=== PATIENT | female | born 1995 | race Caucasian/White ===

== ENCOUNTER 2017-01-12 22:19 | Emergency (ER) | payer MEDICAID, OTHER ==
[~2017-01-12] VITALS: Wt 64.5 kg
[~2017-01-12 22:19] MED LIST: FER325 PO; PREN-39 PO
[2017-01-12] MEDS ORDERED: ACETAMINOPHEN 325 MG TAB PO STA (23:59)
[2017-01-13 00:48] LABS: ADD UMIC YES; UR ASCORBIC ACID 40 mg/dL (NEGATIVE); UR BILIRUBIN (Dip) NEGATIVE (NEGATIVE); UR BLOOD (Dip) NEGATIVE (NEGATIVE); UR CLARITY SLIGHTLY CLOUDY (CLEAR); UR COLOR YELLOW (YELLOW); UR GLUCOSE (Dip) NEGATIVE (NEGATIVE); UR KETONES (Dip) TRACE mg/dL (NEGATIVE); UR LEUKOCYTE ESTERASE (Dip) 1+ Leu/ul (NEGATIVE); UR MUCUS FEW /HPF (NONE SEEN); UR NITRITE (Dip) NEGATIVE (NEGATIVE); UR RBC 1 /HPF (0-5); UR SPECIFIC GRAVITY (Dip) 1.032 (1.003-1.030); UR SQUAMOUS EPITHELIAL CELL FEW /HPF (FEW); UR TOTAL PROTEIN (Dip) NEGATIVE (NEGATIVE); UR UROBILINOGEN (Dip) NEGATIVE (NEGATIVE)
--- NOTE | 2017-01-13 01:13 | RADRPT ---
PROCEDURE: US OB. CLINICAL INDICATION: Pain. TECHNIQUE: Multiple sonographic images of the pelvis were obtained. Transabdominal imaging only w as performed. The images were reviewed on a PACS workstation. COMPARISON: None. FINDINGS: Single live intrauterine is identified. Cardiac activity is present with 146 beats per mi nute. There is a vertex presentation. Measurements: BPD = 14 weeks 4 days. HC = 14 weeks 4 days. AC = 14 weeks 6 days. FL = 14 weeks 2 days. Estimated gestational age of approximately 14 weeks 4 days. The estimated date of delivery is 07/10/2017. The EFW = 101 g which is at the 36 percentile The placenta is anterior. Amniotic fluid MVP = 3.8 cm. There are large simple right ovarian cyst 7.1 x 5.6 x 6.9 cm is present. Flow is identified to the right ovary. IMPRESSION: Single live intrauterine gestation of approximately 14 weeks 4 days. Large simple right ovarian cys t. RPTAT: HMVK .Wallace Chaves MD, Date Time Electronically viewed and signed by .Wallace Chaves MD, on 01/13/2017 01:13 .K/
--- NOTE | 2017-01-13 01:25 | ERD ---
ER Documentation Chief Complaint Date/Time DATE: 01/13/17 TIME: 01:13 Chief Complaint AP since at 1345. 14 weeks HPI This 21-year-old female presents to emergency department for abdominal pain started upper quadrants and has moved to generalized pain. Patient is 3 months , 2 para 100. Patient denies any vaginal discharge or bleeding , denies dysuria, reports pain now seems to be in the right lower pelvic area. Patient denies nausea, vomiting, fever, or chills. ROS All systems reviewed and are negative except as per history of present illness. Medications Home Meds Active Scripts Acetaminophen* (Tylenol*) 325 Mg Tablet, 2 TAB PO Q6 Y for PAIN AND OR ELEVATED TEMP, #20 TAB Prov:KANDI,NAHID 01/13/17 Reported Medications Ferrous Sulfate* (Ferrous Sulfate*) 325 Mg Tabec, 325 MG PO DAILY, TAB 03/15/14 Vits W-Ca,Fe,Fa(<1MG) ( Vitamins) 1 Tab Tablet, 1 TAB PO DAILY 03/15/14 Allergies Allergies: Coded Allergies: No Known Allergy (Unverified , 03/15/14) PMhx/Soc Medical and Surgical Hx: pt denies Medical Hx, pt denies Surgical Hx Hx Alcohol Use: No Hx Substance Use: No Hx Tobacco Use: No Smoking Status: Never smoker Physical Exam Vitals Vital Signs Date Time Temp Pulse Resp B/P Pulse Ox O2 Delivery O2 Flow Rate FiO2 01/13/17 01:45 98.6 78 20 118/75 98 Room Air 01/12/17 22:47 98.3 78 20 105/61 98 Vitals stable, triage notes reviewed Physical Exam Const: Well-nourished, well-appearing, well-hydrated, no acute distress Head: Atraumatic Eyes: Normal Conjunctiva, PERRLA, EOMI ENT: Normal External Ears, Nose and Mouth. Mucous membranes moist Neck: Full range of motion..~ No meningismus. Resp: Respirations even and unlabored no respiratory distress Cardio: Regular rate and rhythm, no murmurs Abd: 's abdomen Skin: Back: Ext: No cyanosis, or edema Neur: Awake and alert Psych: Normal Mood and Affect Results 24 hrs Laboratory Tests Test 01/13/17 00:10 Urine Color YELLOW Urine Clarity SLIGHTLY CLOUDY Urine pH 6.0 Urine Specific [place] 1.032 Urine Ketones TRACEmg/dL Urine Nitrite NEGATIVEmg/dL Urine Bilirubin NEGATIVEmg/dL Urine Urobilinogen NEGATIVEmg/dL Urine Leukocyte Esterase 1+Luis F/ul Urine Microscopic RBC 1/HPF Urine Microscopic WBC 5/HPF Urine Squamous Epithelial Cells FEW/HPF Urine Mucus FEW/HPF Urine Hemoglobin NEGATIVEmg/dL Urine Glucose NEGATIVEmg/dL Urine Total Protein NEGATIVEmg/dl Beta HCG, Quantitative 42508.0mIU/ml Current Medications Medications (Trade) Dose Ordered Sig/Tre Route PRN Reason Start Time Stop Time Status Last Admin Dose Admin Acetaminophen (Tylenol Tab) 650 mg ONCE STAT PO 01/12/17 23:59 01/13/17 00:05 DC 01/13/17 00:16 Beta hCG consistent with Procedures/MDM PROCEDURE: US OB. CLINICAL INDICATION: Pain. TECHNIQUE: Multiple sonographic images of the pelvis were obtained. Transabdominal imaging only was performed. The images were reviewed on a PACS workstation. COMPARISON: None. FINDINGS: Single live intrauterine is identified. Cardiac activity is present with 146 beats per minute. There is a vertex presentation. Measurements: BPD = 14 weeks 4 days. HC = 14 weeks 4 days. AC = 14 weeks 6 days. FL = 14 weeks 2 days. Estimated gestational age of approximately 14 weeks 4 days. The estimated date of delivery is 07/10/2017. The EFW = 101 g which is at the 36 percentile The placenta is anterior. Amniotic fluid MVP = 3.8 cm. There are large simple right ovarian cyst 7.1 x 5.6 x 6.9 cm is present. Flow is identified to the right ovary. IMPRESSION: Single live intrauterine gestation of approximately 14 weeks 4 days. Large simple right ovarian cyst. Electronically viewed and signed by .Wallace Chaves MD, MD on 01/13/2017 01:13 This 21-year-old female presents to emergency department for pelvic pain,14 weeks . threatened miscarriage, placenta previa, considered, beta hCG 33387, OB ultrasound; Single live intrauterine gestation of approximately 14 weeks 4 days. Large simple right ovarian cyst. Urinalysis +1 leukocytes patient will be treated for urinary tract infection with Keflex 1 tab p.o. 4 times daily 7 days. Instructed to follow-up with primary cinder block maker for further complaint of abdominal pain. Return to emergency department for vaginal bleeding. Increase fluids, increase rest, Tylenol as needed pain. I feel the patient is stable for discharge at this time with outpatient management by cinder block maker as discussed above. I have discussed results, examination findings, the treatment plan with the patient and family present prior to discharge. Indications for emergent reevaluation, side effects of medication were also discussed. All questions were answered. Patient verbalizes understanding and agrees with plan of care. Departure Diagnosis: Primary Impression: Abdominal pain in Trimester: second trimester Qualified Code: O26.892 - Abdominal pain in , second trimester Additional Impression: Ovarian cyst during Trimester: second trimester Qualified Code: O34.82 - Ovarian cyst during , second trimester Condition: Good Patient Instructions: Abdominal Pain, Early , Ovarian Cyst Additional Instructions: Thank you for for coming to [facility] for your care today. Please ask your nurse or provider if you have questions about your care today and do not leave until all your questions have been answered. Please use any medications given as directed and follow-up with your doctor (or the doctor you were referred to) in the next 2-3 days. If you do not have a primary care doctor you may follow up at the [facility] [place] (listed below). You may also use motrin and tylenol as needed for fever and/or pain unless instructed otherwise by your provider or nurse. Indications for more urgent follow-up have been discussed, but you may return to the Emergency Department at ANY time for any worrisome or worsening symptoms. If you have abdominal pain, please know that no test or exam you received is perfect and you should follow up within 8 hours for continued pain. If you had any imaging studies today, such as an X-Ray or CT Scan, these studies will be reviewed later by a radiologist. You will be called if there are important findings that were not identified today, so make sure the contact information you provided at registration is correct. If you received any narcotic pain control medicine today, such as Vicodin, Morphine or Dilaudid, your coordination and judgment may be affected for a number of hours. Please do not drive or operate heavy machinery, and you may want someone to assist you at home. If you were given a prescription for narcotic medication, be aware that it is very addictive- use sparingly and only if necessary. NAHID CHAU Jan 13, 2017 01:24
[2017-01-13] MEDS ORDERED: ACET325T33 PO (01:32)
[2017-01-13 01:45] VITALS: BP 118/75; PULSE 78; RESP 20; TEMP 98.6
== END 2017-01-13 01:46 | disposition home or self-care (01) ==
LOC: FTE 22:19
DX: O26.892 Other specified pregnancy related conditions, second trimester (principal); O34.82 Maternal care for other abnormalities of pelvic organs, second trimester; R10.84 Generalized abdominal pain; R10.2 Pelvic and perineal pain; Z3A.14 14 weeks gestation of pregnancy
CPT/HCPCS: 76801; 81001; 84702; Z7610; 36415

== ENCOUNTER 2017-06-14 14:15 | Outpatient (CLI) | END 2017-06-14 17:14 | disposition home or self-care (01) ==

== ENCOUNTER 2017-07-05 11:35 | Inpatient (IN) | END 2017-07-07 15:00 | disposition home or self-care (01) | DRG 775 ==